=== PATIENT | female | born 1960 | race Caucasian/White ===

== ENCOUNTER 2017-02-28 10:26 | Day surgery (SDC) | payer OTHER ==
[~2017-02-28] VITALS: Ht 162.6 cm; Wt 77.6 kg
[2017-02-28] MEDS ORDERED: ACYCLOVIR (10:44)
[2017-02-28 10:46] VITALS: Ht 162.6 cm; Wt 77.6 kg
[2017-02-28 11:37] VITALS: BP 115/75; PULSE 59; RESP 16
[2017-02-28] MEDS ORDERED: MIDAZOLAM 1 MG/ML 2 ML INJ ONE ×3 (12:19→12:20)
[2017-02-28] MEDS ORDERED: FENTAnyl 50 MCG/ML VIAL ONE (12:20)
[2017-02-28 12:40] VITALS: BP 115/70; PULSE 64; RESP 16
--- NOTE | 2017-02-28 13:52 | GILP ---
DATE OF PROCEDURE: NAME OF PROCEDURE: Colonoscopy. SURGEON: Caroline Currie MD PREOPERATIVE DIAGNOSIS: Positive occult blood in stool. POSTOPERATIVE DIAGNOSES 1. Colonoscopy all the way to the cecum. 2. Internal and external hemorrhoids. 3. No colitis or neoplasm was identified. INDICATION FOR THE PROCEDURE: Ms. Ute Leary is a 56-year-old female patient who was noted to hav e positive occult blood in stool. The patient was scheduled for colonoscopy for further evaluation. The procedure and possible complications are well explained to the patient, she understood and conse nted to the procedure. DESCRIPTION OF PROCEDURE: Under the influence of fentanyl and Versed, the colonoscope was carefully introduced in the rectum and under direct vision, it was advanced all the way to the cecum. FINDINGS: The patient had internal and external hemorrhoids. No colitis or neoplasm was identified . She tolerated the procedure very well and there was no complication from the procedure. At the end of the procedures, she was awake with stable vital signs and she was discharged home to the care of her family. IMPRESSION: 1. Colonoscopy all the way to the cecum. 2. Internal and external hemorrhoids. No colon neoplasm was identified. PLAN: Next screening colonoscopy in 10 years. Dictated By: CAROLINE MCKINLEY/HIRAM Conf#: [id number] DID#: [id number]
== END 2017-02-28 12:55 | disposition home or self-care (01) ==
LOC: GIL 10:26
PROVIDERS: ATTEND Internal Medicine Gastroenterology
DX: K92.1 Melena (principal); K64.4 Residual hemorrhoidal skin tags; K64.8 Other hemorrhoids
CPT/HCPCS: 45378; J2250; J3010